=== PATIENT | male | born 1990 | race African-American/Black ===

== ENCOUNTER 2020-06-04 21:56 | Emergency (ER) | payer SELFPAY ==
[2020-06-04] MEDS ORDERED: HYDROCODONE/ACETAMINOPHEN 5-325 MG TABLET PO ONE (22:26)
--- NOTE | 2020-06-04 22:30 | ER Document Report ---
HPI - HPI Patient complains to provider of: Ankle injury Time Seen by Provider: 06/04/20 22:21 Onset: This evening Onset/Duration: Sudden Quality of pain: Achy Pain Level: 4 Context: Patient states he was playing basketball and stepped into a hole rolling his ankle. Patient complains of right ankle pain that radiates into the foot. Exacerbated by: Standing, Movement, Walking Relieved by: Denies Similar symptoms previously: No Recently seen / treated by doctor: No - ROS ROS below otherwise negative: Yes Systems Reviewed and Negative: Yes All other systems reviewed and negative - GASTROINTESTINAL Gastrointestinal: DENIES: Nausea - MUSCULOSKELETAL Musculoskeletal: REPORTS: Extremity pain - Right ankle and foot, Swelling - DERM Skin Color: Ecchymosis Skin Problems: None Past Medical History - General Information source: Patient - Social History Smoking Status: Never Smoker Frequency of alcohol use: None Drug Abuse: None Occupation: [employer] Lives with: Family Family History: Reviewed & Not Pertinent - Medical History Medical History: Negative Surgical Hx: Negative Vertical Provider Document - CONSTITUTIONAL Agree With Documented VS: Yes Exam Limitations: No Limitations General Appearance: WD/WN, No Apparent Distress - HEENT HEENT: Atraumatic, Normocephalic - NECK Neck: Normal Inspection - RESPIRATORY Respiratory: No Respiratory Distress - CARDIOVASCULAR Pulses: Normal: Dorsalis pedis - MUSCULOSKELETAL/EXTREMETIES Musculoskeletal/Extremeties: MAEW, Tender - Right ankle tender over lateral malleolar area with 3+ edema and ecchymosis, Edema, Eccymosis Notes: Right foot tenderness over cuboid with 2+ swelling - NEURO Level of Consciousness: Awake, Alert, Appropriate Motor/Sensory: No Motor Deficit - DERM Integumentary: Warm, Dry, No Rash Course - Vital Signs Vital signs: Temp Pulse Resp BP Pulse Ox 98.8 F 78 16 139/69 H 95 06/04/20 22:03 06/04/20 22:03 06/04/20 22:03 06/04/20 22:03 06/04/20 22:03 Procedures - Immobilization Right Foot Pre-Proc Neuro Vasc Exam: Normal Immobilizer type: Short Leg Posterior Performed by: PCT Post-Proc Neuro Vasc Exam: Normal Alignment checked and good: Yes Discharge - Discharge Clinical Impression: Foot fracture, right Condition: Stable Disposition: HOME, SELF-CARE Instructions: Use of Crutches ([facility]), Foot Fracture ([facility]), Ice & Elevation ([facility]), Oral Narcotic Medication ([facility]), Splint Precautions ([facility]) Additional Instructions: Return immediately for any new or worsening symptoms Followup with your primary care provider, call tomorrow to make a followup appointment Follow-up with orthopedics for further evaluation, call tomorrow to make an appointment Prescriptions: Naproxen [Naprosyn 250 Nmg Tablet] 1 tab PO BID #14 tablet Hydrocodone/Acetaminophen [[place] 5-325 mg Tablet] 1 tab PO Q6 PRN #10 tablet PRN Reason: Referrals: [facility] [Provider Group] - Follow up tomorrow
--- NOTE | 2020-06-04 23:37 | RADIOLOGY REPORT (SQ) ---
EXAM DESCRIPTION: X-ray, three views of the right ankle CLINICAL HISTORY: 29 years Male, stepped in hole, r foot/ankle pain COMPARISON: None. FINDINGS: Diffuse soft tissue swelling is noted predominantly at the level of the foot. There appears to be an avulsion fracture along the lateral aspect of the foot most likely arising from either the calcaneus or the cuboid. The ankle mortise is intact. No ankle fracture is seen. Small ossific densities are present anterior to the distal tibia suggesting old trauma. IMPRESSION: Avulsion fracture along the medial aspect of the mid or hindfoot. This most likely arises from the calcaneus or the cuboid. This is associated with marked soft tissue swelling.
--- NOTE | 2020-06-04 23:38 | RADIOLOGY REPORT (SQ) ---
EXAM DESCRIPTION: X-ray, three views of the right foot CLINICAL HISTORY: 29 years Male, stepped in hole, r foot/ankle pain COMPARISON: None. FINDINGS: Small avulsion fracture is identified along the lateral aspect at the base of the calcaneus. Bone mineralization is normal. No erosions or periostitis. There is mild bunion deformity of the first MTP joint. Soft tissue swelling is noted laterally. IMPRESSION: Avulsion fracture of the lateral protuberance of the calcaneus.
[2020-06-05 01:19] VITALS: BP 140/65
== END 2020-06-05 00:20 | disposition home or self-care (01) ==
LOC: ER 21:56
DX: S92.001A Unspecified fracture of right calcaneus, initial encounter for closed fracture (principal); M25.571 Pain in right ankle and joints of right foot; X50.0XXA Overexertion from strenuous movement or load, initial encounter; Y93.67 Activity, basketball
CPT/HCPCS: 99283